=== PATIENT | female | born 1975 | race Caucasian/White ===

== ENCOUNTER 2016-10-15 15:52 | Observation (INO) | payer MEDICAID ==
[2016-10-15] VITALS (7 sets, daily range): BP systolic 108–133; BP diastolic 74–86; PULSE 68–95; RESP 18–20; TEMP 96.9–98.5; O2SAT 95–97
[~2016-10-15] VITALS: Ht 152.4 cm; Wt 73.0 kg
[~2016-10-15 15:52] MED LIST: BACT800T5 PO; CEPH500T PO
--- NOTE | 2016-10-15 16:18 | PD ---
HPI Chief Complaint: chest pain Time Seen by Provider: 16:11 Travel History International Travel<30 days: No Contact w/Intl Traveler<30days: No Traveled to known affect area: No History of Present Illness HPI 41-year-old female here for evaluation of substernal chest pain that started last night. The patient reports substernal chest ache/heaviness that started last night. Currently the pain is 5 out of 10 and is worse with exertion. The pain does not radiate. She went to an urgent care facility today where an EKG was performed and was reviewed and shows no ST segment abnormalities. Patient smokes cigarettes daily. She denies any known history of coronary artery disease. She has a history of asthma. No history of DVT or PE. She reports family history of heart disease on her father's side. No paresthesias or motor deficits. PFSH Past Medical History Asthma: Yes Blood Disorders: No Cancer: No Cardiovascular Problems: No COPD: No Diminished Hearing: No Endocrine: No Genitourinary: No Immune Disorder: No Musculoskeletal: Yes (BACK INJURY 06/2009) Neurologic: No Psychiatric: No Reproductive: No Respiratory: Yes (hx of asthma as a child) Immunizations Current: No Sleep Apnea: No Menopausal: No : 5 Para: 2 Miscarriage: 2 : 1 Ectopic : Yes (X 2) Past Surgical History Abdominal Surgery: Yes (CSECTION) AICD: No Arteriovenous Shunt: No Cardiac Surgery: No Section: Yes (X2) Ear Surgery: No Endocrine Surgery: No Eye Surgery: No Gynecologic Surgery: Yes Insulin Pump: No Joint Replacement: No Oral Surgery: No Pacemaker: No Thoracic Surgery: No Other Surgery: Yes Social History Alcohol Use: No Tobacco Use: Yes (1PPD) Substance Use: No Allergies-Medications (Allergen,Severity, Reaction): Coded Allergies: cyclobenzaprine (Unverified Adverse Reaction, Severe, Nausea/Vomiting, ) Reported Meds & Prescriptions Reported Meds & Active Scripts Active Reported Robaxin (Methocarbamol) 750 Mg Tab 750 Mg PO Q4H Hydrocodone-Acetaminophen 7.5-325 mg Tab 1 Tab PO Q6H PRN Lorazepam 0.5 Mg Tab 0.5 Mg PO Q8H PRN Review of Systems Except as stated in HPI: all other systems reviewed are Neg Physical Exam Narrative GENERAL: Well-developed, well-nourished, comfortable, no apparent distress. SKIN: Focused skin assessment warm/dry. HEAD: Atraumatic. Normocephalic. EYES: Pupils equal and round. No scleral icterus. No injection or drainage. ENT: Mucous membranes pink and moist. NECK: Trachea midline. No JVD. CARDIOVASCULAR: Regular rate and rhythm. Distal pulses brisk and equal bilaterally. RESPIRATORY: No accessory muscle use. Clear to auscultation. Breath sounds equal bilaterally. GASTROINTESTINAL: Abdomen soft, non-tender, nondistended. MUSCULOSKELETAL: No obvious deformities. No clubbing. No cyanosis. No edema. NEUROLOGICAL: Awake and alert. No obvious cranial nerve deficits. Motor grossly within normal limits. Normal speech. PSYCHIATRIC: Appropriate mood and affect; insight and judgment normal. Data Data Last Documented VS Vital Signs Date Time Temp Pulse Resp B/P Pulse Ox O2 Delivery O2 Flow Rate FiO2 10/15/16 17:40 81 108/74 97 10/15/16 16:39 98.5 18 Orders Electrocardiogram (10/15/16 16:16) Basic Metabolic Panel (Bmp) (10/15/16 16:16) Ckmb (Isoenzyme) Profile (10/15/16 16:16) Complete Blood Count With Diff (10/15/16 16:16) D-Dimer (10/15/16 16:16) Magnesium (Mg) (10/15/16 16:16) Prothrombin Time / Inr (Pt) (10/15/16 16:16) Act Partial Throm Time (Ptt) (10/15/16 16:16) Troponin I (10/15/16 16:16) Chest, Single Ap (10/15/16 16:16) Ecg Monitoring (10/15/16 16:16) Bilateral Bp Monitoring (10/15/16 16:16) Iv Access Insert/Monitor (10/15/16 16:16) Oximetry (10/15/16 16:16) Oxygen Administration (10/15/16 16:16) Aspirin Chew (Aspirin Chew) (10/15/16 16:30) Sodium Chloride 0.9% Flush (Ns Flush) (10/15/16 16:30) Nitroglycerin Sl (Nitrostat Sl) (10/15/16 16:30) Beta Hcg (Quant/Titer) (10/15/16 16:16) Labs Laboratory Tests Test 10/15/16 16:36 White Blood Count 10.0 TH/MM3 Red Blood Count 4.69 MIL/MM3 Hemoglobin 15.0 GM/DL Hematocrit 43.3 % Mean Corpuscular Volume 92.3 FL Mean Corpuscular Hemoglobin 31.9 PG Mean Corpuscular Hemoglobin 34.6 % Concent Red Cell Distribution Width 12.5 % Platelet Count 270 TH/MM3 Mean Platelet Volume 8.2 FL Neutrophils (%) (Auto) 72.0 % Lymphocytes (%) (Auto) 21.0 % Monocytes (%) (Auto) 3.5 % Eosinophils (%) (Auto) 1.1 % Basophils (%) (Auto) 2.4 % Neutrophils # (Auto) 7.2 TH/MM3 Lymphocytes # (Auto) 2.1 TH/MM3 Monocytes # (Auto) 0.4 TH/MM3 Eosinophils # (Auto) 0.1 TH/MM3 Basophils # (Auto) 0.2 TH/MM3 CBC Comment DIFF FINAL Differential Comment Prothrombin Time 10.8 SEC Prothromb Time International 1.0 RATIO Ratio Activated Partial 27.4 SEC Thromboplast Time D-Dimer Quantitative (PE/DVT) 0.20 MG/L FEU Sodium Level 138 MEQ/L Potassium Level 3.9 MEQ/L Chloride Level 109 MEQ/L Carbon Dioxide Level 21.3 MEQ/L Anion Gap 8 MEQ/L Blood Urea Nitrogen 9 MG/DL Creatinine 0.72 MG/DL Estimat Glomerular Filtration 89 ML/MIN Rate Random Glucose 83 MG/DL Calcium Level 8.8 MG/DL Magnesium Level 1.9 MG/DL Total Creatine Kinase 70 U/L Troponin I LESS THAN 0.02 NG/ML Human Chorionic Gonadotropin, LESS THAN 1 Quant MIU/ML MDM Medical Decision Making Medical Screen Exam Complete: Yes Emergency Medical Condition: Yes Interpretation(s) EKG: Sinus, rate 88, normal axis, normal intervals, no acute ischemic abnormality. Differential Diagnosis ACS, pneumothorax, pericarditis, PE, pneumonia, musculoskeletal pain Narrative Course Initial vital signs show heart rate 87, blood pressure 130/81, pulse ox 96% on room air, oral temp of 98.5F. CBC is unremarkable. BMP is unremarkable. Cardiac enzymes are negative. D-dimer is negative at 0.20. Beta hCG is negative. Chest x-ray: Small area of atelectasis at the right lung base. Patient was given a full aspirin and one sublingual nitroglycerin with improvement in chest tightness. She still has a slight pain in her chest. On reassessment she is sleeping comfortably. Patient is a smoker and has a strong family history of heart disease. Given these risk factors she will be admitted to the chest pain center for further cardiac evaluation. She is amenable to this plan. Case discussed with hospitalist Dr Lea who will admit the patient to his service. Diagnosis Primary Impression: Chest pain Qualified Code: R07.9 - Chest pain, unspecified type Admitting Information Admitting Physician Requests: Observation Shaun Crowley MD Oct 15, 2016 16:18 Shaun Crowley MD Oct 15, 2016 16:18
[2016-10-15] MEDS ORDERED: NITROGLYCERIN 0.4 MG SL 25 TABS/BTL SL ONE (16:30)
[2016-10-15] MEDS ORDERED: ASPIRIN 81 MG CHEW TAB PO ONE (16:30)
[2016-10-15] MEDS ORDERED: SODIUM CHLORIDE 0.9% FLUSH 10 ML FLUSH IVF PRN (16:30)
[2016-10-15] MEDS ORDERED: ROBA750T PO (16:46)
[2016-10-15] MEDS ORDERED: HYDR-3580 PO (16:46)
[2016-10-15] MEDS ORDERED: LORA-373 PO (16:46)
[2016-10-15 16:52] LABS: AUTOMATED NEUTROPHIL # 7.2 TH/MM3 (1.8-7.7); BASOPHIL # 0.2 TH/MM3 (0-0.2); BASOPHIL % 2.4 % (0.0-2.0); CHLORIDE 109 MEQ/L (98-107); EOSINOPHIL # 0.1 TH/MM3 (0-0.4); EOSINOPHIL % 1.1 % (0.0-4.0); HEMATOCRIT 43.3 % (35.0-46.0); HEMO FLAGS DIFF FINAL; LYMPHOCYTE # 2.1 TH/MM3 (1.0-4.8); MEAN CELL VOLUME 92.3 FL (80.0-100.0); MEAN CORPUSCULAR HEMOGLOBIN 31.9 PG (27.0-34.0); MEAN CORPUSCULAR HGB CONC 34.6 % (32.0-36.0); MONO % 3.5 % (0.0-8.0); PLATELET COUNT 270 TH/MM3 (150-450); POTASSIUM 3.9 MEQ/L (3.5-5.1); RED BLOOD COUNT 4.69 MIL/MM3 (4.00-5.30); RED CELL DISTRIBUTION WIDTH 12.5 % (11.6-17.2); SODIUM (NA) 138 MEQ/L (136-145)
[2016-10-15 16:55] LABS: ANION GAP 8 MEQ/L (5-15); BICARBONATE 21.3 MEQ/L (21.0-32.0); BLOOD UREA NITROGEN 9 MG/DL (7-18); MAGNESIUM 1.9 MG/DL (1.5-2.5)
[2016-10-15 16:58] LABS: APTT (PATIENT) 27.4 SEC (24.3-30.1); GLOMERULAR FILTRATION RATE 89 ML/MIN (>89); PROTHROMBIN TIME - PATIENT 10.8 SEC (9.8-11.6)
[2016-10-15 17:03] LABS: BETA HCG QUANT LESS THAN 1 MIU/ML (0-5)
[2016-10-15 17:05] LABS: CREATINE KINASE 70 U/L (26-192)
--- NOTE | 2016-10-15 17:11 | RADRPT ---
EXAM DATE/TIME: 10/15/2016 16:47 [facility] COMPARISON: No previous studies available for comparison. INDICATIONS : Chest pain. MEDICAL HISTORY : None. SURGICAL HISTORY : None. ENCOUNTER: Initial ACUITY: 1 day PAIN SCORE: 7/10 LOCATION: Bilateral chest FINDINGS: There is some mild platelike atelectasis at the right lung base. The lungs are otherwise clear. The h eart is normal in size. The bony structures are intact. CONCLUSION: Small area of atelectasis at the right lung base. Mulugeta Schwarz MD on October 15, 2016 at 17:09 Board Certified Radiologist. This report was verified electronically.
[2016-10-15] MEDS ORDERED: NITROGLYCERIN 0.4 MG SL 25 TABS/BTL SL PRN (18:00)
[2016-10-15] MEDS ORDERED: ACETAMINOPHEN/HYDROcodone 325 MG/7.5 MG TAB PO PRN (18:00)
[2016-10-15] MEDS ORDERED: TEMAZEPAM 15 MG CAP PO PRN (18:00)
[2016-10-15] MEDS ORDERED: ONDANSETRON HCL 4 MG/2 ML VIAL IV PRN (18:00)
[2016-10-15] MEDS ORDERED: MORPHINE SULFATE 4 MG/ML INJ IV PRN (18:00)
[2016-10-15] MEDS ORDERED: SODIUM CHLORIDE 0.9% FLUSH 10 ML FLUSH IV FLUSH PRN (18:00)
[2016-10-15] MEDS ORDERED: ACETAMINOPHEN 500 MG CPLT PO PRN (18:00)
[2016-10-15] MEDS: SODIUM CHLORIDE 0.9% FLUSH 10 ML FLUSH IV FLUSH SCH (21:18)
[2016-10-15 22:01] LABS: CREATINE KINASE 51 U/L (26-192)
[2016-10-15 23:43] LABS: CREATINE KINASE 49 U/L (26-192)
[2016-10-16] VITALS: BP 102/65; PULSE 72; RESP 20; TEMP 96.7; O2SAT 98
--- NOTE | 2016-10-16 00:17 | EKG ---
Date Performed: 10/15/2016 Time Performed: 20:44:12 PTAGE: 41 years EKG: Sinus rhythm NORMAL ECG PREVIOUS TRACING : 10/15/2016 18.12 Compared to prior tracing no significant change DOCTOR: Elder Schrader Interpretating Date/Time 10/16/2016 00:16:31
--- NOTE | 2016-10-16 00:30 | EKG ---
Date Performed: 10/15/2016 Time Performed: 18:12:12 PTAGE: 41 years EKG: Sinus rhythm NORMAL ECG PREVIOUS TRACING : 10/15/2016 16.21 Compared to prior tracing no significant change DOCTOR: Elder Schrader Interpretating Date/Time 10/16/2016 00:28:43
--- NOTE | 2016-10-16 00:33 | EKG ---
Date Performed: 10/15/2016 Time Performed: 16:21:07 PTAGE: 41 years EKG: Sinus rhythm NORMAL ECG INTERPRETATION BASED ON A DEFAULT AGE OF 40 YEARS Compared to the PREVIOUS TRACING , no significant change DOCTOR: Elder Schrader Interpretating Date/Time 10/16/2016 00:32:45
[2016-10-16 01:55] VITALS: O2SAT 96
[2016-10-16 04:00] VITALS: BP 101/69; PULSE 72; RESP 20; TEMP 96; O2SAT 97
[2016-10-16 08:13] VITALS: O2SAT 97
[2016-10-16 08:52] VITALS: BP 124/69; PULSE 73; RESP 14; TEMP 97.9; O2SAT 96
--- NOTE | 2016-10-16 09:22 | HHI.HP ---
[facility] Farooq [facility] M.D. Admission Diagnosis Chest Pain Diagnoses: (1) Chest pain Diagnosis: Principal Chief Complaint: Chest discomfort Travel History International Travel<30 Days: No Contact w/Intl Traveler <30 Da: No Traveled to Known Affected Are: No History of Present Illness Written by Elijah Owen, acting as scribe for Dr. Lea on 10/16/16 at 09: 14. Is a 41-year-old female with chronic neck and back pain who presented to the hospital because of chest discomfort. Patient states that the pain started 2 days ago while she was sitting and watching TV. She describes it as a pressure 8/10 on a pain scale located over the mid sternum and has remained constant for the last 2 days without any changing. She indicates that she did have some nausea, shortness of breath, lightheaded dizziness, cough since the chest discomfort started. Since the pain was persistent she came to the emergency department for evaluation. Patient was given nitroglycerin and the pain did improve to a 2/10 on a pain scale. The pain is persistent at this time and is reproducible on palpation. Patient states that she has been working in the yard recently, denies any heavy lifting, straining. Patient had workup done in the emergency department and is recommended that the patient be observed in the chest pain center. Review of Systems Cardiovascular: COMPLAINS OF: Chest pain Except as stated in HPI: all other systems reviewed are Neg Past Family Social History Past Medical History Chronic neck and back pain Chronic smoker Past Surgical History 2 Ectopic 2 Reported Medications Reported Meds & Active Scripts Active Reported Robaxin (Methocarbamol) 750 Mg Tab 750 Mg PO Q4H Hydrocodone-Acetaminophen 7.5-325 mg Tab 1 Tab PO Q6H PRN Lorazepam 0.5 Mg Tab 0.5 Mg PO Q8H PRN Allergies: Coded Allergies: cyclobenzaprine (Unverified Adverse Reaction, Severe, Nausea/Vomiting, ) Family History Reviewed and patient states that she is adopted, however she has learned that there is heart disease and cancer, but does not know specifics Social History Patient smokes 1 pack a cigarettes a day since she was 14 years old, Patient denies any alcohol or illicit drugs Physical Exam Vital Signs Vital Signs Date Time Temp Pulse Resp B/P Pulse Ox O2 Delivery O2 Flow Rate FiO2 10/16/16 08:52 97.9 73 14 124/69 96 10/16/16 08:13 97 Nasal Cannula 1.00 10/16/16 04:00 96.0 72 20 101/69 97 10/16/16 01:55 96 Nasal Cannula 1.50 10/16/16 00:00 96.7 72 20 102/65 98 10/15/16 23:00 70 10/15/16 20:00 96.9 68 20 117/86 97 10/15/16 20:00 73 10/15/16 17:40 81 108/74 97 10/15/16 17:14 95 116/76 95 10/15/16 16:53 130/81 133/76 10/15/16 16:46 96 10/15/16 16:46 85 96 10/15/16 16:39 98.5 87 18 130/81 96 Physical Exam GENERAL: Well-developed, well-nourished, in no acute distress. alert and orientated HEENT: Head is normocephalic without any lesions or masses noted. Facial features are symmetric. Eyes: Pupils equal round reactive to light. Extraocular muscles are intact. Conjunctivae were clear. Oropharyngeal: Pharynx without any erythema edema. Tongue is midline without deviation. Buccal mucosa is moist without any masses or lesions NECK: Supple without any masses. Trachea midline no deviation. No JVD, no bruits are appreciated CARDIAC: Regular rhythm, regular rate. S1/S2 are heard. No murmurs gallops or rubs. Reproducible palpable tenderness noted over the mid sternum LUNGS: Clear to auscultation bilaterally. No wheeze, rhonchi or rales. No use of accessory muscles on inspiration or expiration. ABDOMEN: Soft, nontender. Nondistended. Bowel sounds heard in all 4 quadrants. No organomegaly or masses. Negative rebound, negative guarding EXTREMITIES: No edema, pulses are equal bilaterally. No cyanosis or clubbing NEUROLOGY: Mood and affect appear appropriate. Cranial nerves II through XII grossly intact. Muscle strength 5/5 in upper and lower extremities bilaterally. Deep tendon reflexes are 2+ in upper and lower extremities bilaterally. Laboratory Laboratory Tests Test 10/15/16 10/15/16 10/15/16 16:36 20:50 22:35 White Blood Count 10.0 Red Blood Count 4.69 Hemoglobin 15.0 Hematocrit 43.3 Mean Corpuscular Volume 92.3 Mean Corpuscular Hemoglobin 31.9 Mean Corpuscular Hemoglobin 34.6 Concent Red Cell Distribution Width 12.5 Platelet Count 270 Mean Platelet Volume 8.2 Neutrophils (%) (Auto) 72.0 Lymphocytes (%) (Auto) 21.0 Monocytes (%) (Auto) 3.5 Eosinophils (%) (Auto) 1.1 Basophils (%) (Auto) 2.4 Neutrophils # (Auto) 7.2 Lymphocytes # (Auto) 2.1 Monocytes # (Auto) 0.4 Eosinophils # (Auto) 0.1 Basophils # (Auto) 0.2 CBC Comment DIFF FINAL Differential Comment Prothrombin Time 10.8 Prothromb Time International 1.0 Ratio Activated Partial 27.4 Thromboplast Time D-Dimer Quantitative (PE/DVT) 0.20 Sodium Level 138 Potassium Level 3.9 Chloride Level 109 Carbon Dioxide Level 21.3 Anion Gap 8 Blood Urea Nitrogen 9 Creatinine 0.72 Estimat Glomerular Filtration 89 Rate Random Glucose 83 Calcium Level 8.8 Magnesium Level 1.9 Total Creatine Kinase 70 51 49 Troponin I LESS THAN 0.02 LESS THAN 0.02 LESS THAN 0.02 Human Chorionic Gonadotropin, LESS THAN 1 Quant Result Diagram: 10/15/16 1636 10/15/16 1636 Imaging Last Impressions Chest X-Ray 10/15/16 1616 Signed Impressions: Service Date/Time: Saturday, October 15, 2016 16:47 - CONCLUSION: Small area of atelectasis at the right lung base. Mulugeta Schwarz MD Assessment and Plan Assessment and Plan Chest pain, atypical Patient with increased risk factor to include tobacco use, family history of heart disease Patient has been ruled out for any acute coronary event with serial cardiac enzymes which are negative, serial EKGs which show sinus rhythm without any changes We'll pursue nuclear stress test at this time, patient indicates that she cannot do an exercise stress test. If negative she will be discharged home. Continue on aspirin, nitroglycerin as needed, morphine as needed. Chronic neck and back pain Continue as needed pain control DVT prevention Low risk, early ambulation Discharge disposition Discharge home in stable condition Activity: Ad amrik. Diet: Regular diet Medications per medication reconciliation Follow-up primary medical doctor one week This note was transcribed by scribe [Elijah Owen]. I, Dr. Clemente Lea personally performed the history, physical exam, and medical decision making; and confirmed the accuracy of the information in the transcribed note. Authenticated by Dr. Clemente Lea on 10/16/16 at 0915. Problem Qualifiers (1) Chest pain: Qualified Code: R07.9 - Chest pain, unspecified type Elijah Owen Oct 16, 2016 09:22 Clemente Lea MD Oct 16, 2016 10:46
[2016-10-16] MEDS: SODIUM CHLORIDE 0.9% FLUSH 10 ML FLUSH IV FLUSH SCH (10:03)
[2016-10-16] MEDS ORDERED: REGADENOSON INJ 0.4 MG/5 ML SYR IV ONE (11:37)
--- NOTE | 2016-10-16 12:49 | RADRPT ---
EXAM DATE/TIME: 10/16/2016 11:31 [facility] COMPARISON: No previous studies available for comparison. INDICATIONS : Substernal chest pain. Angina. Abnormal EKG. DOSE: 25.7 mCi Tc99m Myoview at stress. 8.1 mCi Tc99m Myoview at rest. 0.4 mg Lexisca STRESS SYMPTOMS: Head pressure and dizzy. EJECTION FRACTION: 66% MEDICAL HISTORY : Smoker and asthma. SURGICAL HISTORY : section. ENCOUNTER: Initial ACUITY: 1 day PAIN SCALE: 5/10 LOCATION: Substernal chest TECHNIQUE: The patient underwent pharmacologic stress with infusion of prescribed dose. Continuous ECG tracing was monitored during stress. Gated SPECT imaging was performed after stress and conventional SPECT i maging was performed at rest. The examination was performed on a SPECT/CT scanner, both attenuation and non-corrected datasets were reviewed. FINDINGS: DISTRIBUTION: The maximum perfused segment at stress is in the inferior wall. PERFUSION STUDY: The pattern of perfusion at stress is within normal limits. GATED STUDY: There is intact wall motion and thickening without hypokinetic or dyskinetic segments. CONCLUSION: 1. Normal wall motion and calculated ejection fraction. 2. No fixed or reversible wall defects. RISK CATEGORY: Low (<1% Annual Mortality Rate) Be Aragon MD on October 16, 2016 at 12:43 Board Certified Radiologist. This report was verified electronically.
--- NOTE | 2016-10-16 13:40 | HHI.DCPOC ---
Discharge Care Plan Diagnosis: (1) Chest pain Goals to Promote Your Health * To prevent worsening of your condition and complications * To maintain your health at the optimal level Directions to Meet Your Goals Take your medications as prescribed Follow your dietary instruction Follow activity as directed Keep your appointments as scheduled Take your immunizations and boosters as scheduled If your symptoms worsen call your PCP, if no PCP go to Urgent Care Center or Emergency Room Smoking is Dangerous to Your Health. Avoid second hand smoke Call the 24-hour hour crisis hotline for domestic abuse at Elijah Owen Oct 16, 2016 13:40
--- NOTE | 2016-10-16 16:21 | TR ---
Date Performed: 10/16/2016 Time Performed: 12:00:18 DOCTOR: Adolfo Nunez DRUG LIST: CLINICAL HISTORY: REASON FOR TEST: REASON FOR ENDING: OBSERVATION: CONCLUSION: Lexiscan stress test was performed under standard four minute protocol. Radionuclid e was injected one minute prior to ending the test. No electrocardiographic abormalities were present to suggest ischemia. Nuclear imaging and interpretation are pending. COMMENTS:
== END 2016-10-16 15:34 | disposition home or self-care (01) ==
LOC: PHED 15:52 → PHEDA 17:48 → PH3A 18:55
PROVIDERS: ADMIT Family Medicine; ATTEND Family Medicine
DX: R07.89 Other chest pain (principal); R06.02 Shortness of breath; G89.29 Other chronic pain; M54.2 Cervicalgia; R94.31 Abnormal electrocardiogram [ECG] [EKG]; F17.210 Nicotine dependence, cigarettes, uncomplicated; J98.11 Atelectasis; Z82.49 Family history of ischemic heart disease and other diseases of the circulatory system
CPT/HCPCS: 71010; 78452; 80048; 82550; 83735; 84484; 84702; 85025; 85379; 85610; 85730; 87641; 93005; 93017; 99285; A9502; G0378; J2785

== ENCOUNTER 2017-08-09 08:57 | Emergency (ER) | payer MEDICAID ==
[~2017-08-09] VITALS: Ht 152.4 cm; Wt 75.8 kg
[~2017-08-09 08:57] MED LIST changes: -BACT800T5 PO; -CEPH500T PO; +HYDR-3580 PO; +LORA0.5T PO; +ROBA750T PO
[2017-08-09 09:01] VITALS: BP 120/73; PULSE 94; RESP 16; TEMP 98.3; O2SAT 97
[2017-08-09] MEDS ORDERED: METHOCARBAMOL 500 MG TAB PO ONE (09:45)
[2017-08-09] MEDS ORDERED: ACETAMINOPHEN/HYDROcodone 325 MG/5 MG TAB PO ONE (09:45)
--- NOTE | 2017-08-09 09:53 | PD ---
HPI Chief Complaint: Injury Time Seen by Provider: 09:20 Travel History International Travel<30 days: No Contact w/Intl Traveler<30days: No Traveled to known affect area: No History of Present Illness HPI 42-year-old female presents to the emergency department with complaint of pain to her upper right calf and back of her knee since after running yesterday and she "felt a tear." Reports tingling sensation in her foot, otherwise denies loss of sensation. Reports decreased range of motion secondary to pain. Is able to flex and extend the leg completely. Has been ambulatory on the affected extremity. Denies fever, vomiting. Denies chest pain, shortness of breath. Denies history of DVT, anticoagulant therapy, contraception use, recent travel or surgery. Worse with ambulation. Better with rest. Rates pain 09/09. Has prescription of Lortab for chronic back pain and has been taking that for pain management with minimal relief; last taken last night. Has not tried any other treatments. Primary CARE providers Dr. Cannon at [facility]. Allergies to Flexeril. History of chronic back pain. Denies other significant past medical history. Has no other medical complaints. No other modifying factors or associated signs and symptoms. PFSH Past Medical History Asthma: Yes Blood Disorders: No Anxiety: Yes Depression: No Cancer: No Cardiovascular Problems: No Chemotherapy: No COPD: No Diminished Hearing: No Endocrine: No Genitourinary: No Immune Disorder: No Musculoskeletal: Yes (BACK INJURY 06/2009) Neurologic: Yes Psychiatric: Yes Reproductive: No Respiratory: Yes (hx of asthma as a child) Immunizations Current: No Radiation Therapy: No Sleep Apnea: No ?: Not Menopausal: No : 5 Para: 2 Miscarriage: 2 : 1 Ectopic : Yes (X 2) Past Surgical History Abdominal Surgery: Yes (CSECTION) AICD: No Arteriovenous Shunt: No Cardiac Surgery: No Section: Yes (X2) Ear Surgery: No Endocrine Surgery: No Eye Surgery: No Gynecologic Surgery: Yes Insulin Pump: No Joint Replacement: No Oral Surgery: No Pacemaker: No Thoracic Surgery: No Other Surgery: Yes Social History Alcohol Use: No Tobacco Use: Yes (1PPD) Substance Use: No Allergies-Medications (Allergen,Severity, Reaction): Coded Allergies: cyclobenzaprine (Unverified Adverse Reaction, Severe, Nausea/Vomiting, 08/09) Reported Meds & Prescriptions Reported Meds & Active Scripts Active Ibuprofen 800 Mg Tab 800 Mg PO Q6HR PRN Reported Lorazepam 0.5 Mg Tab 1 Mg PO Q8H PRN Review of Systems Except as stated in HPI: all other systems reviewed are Neg Physical Exam Narrative GENERAL: Well-nourished, well-developed femur patient, in no acute distress; afebrile, nontoxic-appearing SKIN: Warm and dry. HEAD: Atraumatic. Normocephalic. EYES: Pupils equal and round. No scleral icterus. No injection or drainage. ENT: Mucosa pink and moist. Airway patent. NECK: Trachea midline. CARDIOVASCULAR: Regular rate. RESPIRATORY: No accessory muscle use. GASTROINTESTINAL: Flat. MUSCULOSKELETAL: Right knee nonedematous, nonerythematous, and without ecchymosis; flexion to approx 90; with full extension; point tenderness to the posterior aspect and tot he upper calf area; right calf is without erythema, edema, ecchymosis; no obvious deformity. Right Lower extremity is supple and non-tense with 2+ pedal pulse and sensory intact and without erythema or edema. With active plantar flexion and extension. NEUROLOGICAL: Awake and alert. Oriented 3. No obvious cranial nerve deficits. Motor grossly within normal limits. Normal speech. PSYCHIATRIC: Appropriate mood and affect; insight and judgment normal. Data Data Last Documented VS Vital Signs Date Time Temp Pulse Resp B/P (MAP) Pulse Ox O2 Delivery O2 Flow Rate FiO2 08/09/17 09:01 98.3 94 16 120/73 (89) 97 Orders Orders Knee, Complete (4vws) (08/09/17 09:40) Crutches (08/09/17 09:40) Acetamin-Hydrocod 325-5 Mg ([place] 5-325 (08/09/17 09:45) Methocarbamol (Robaxin) (08/09/17 09:45) Canvas Knee Splint (Cks) (08/09/17 ) Ed Discharge Order (08/09/17 11:01) MDM Medical Decision Making Medical Screen Exam Complete: Yes Emergency Medical Condition: Yes Medical Record Reviewed: Yes Differential Diagnosis Muscle strain of leg, ligament tear, knee strain Narrative Course 42-year-old female with injury to the posterior aspect of her knee and right upper calf since yesterday after running and "felt a tear." I will x-ray the need to rule out any acute injury. Otherwise I do suspect strain or sprain of the leg. Patient takes Lortab for chronic back pain. She has not taken on this morning. Lortab, right knee x-ray ordered. 1101: Right knee x-ray concluded: Knee X-Ray 08/09/17 0940 Signed Impressions: CONCLUSION: No evidence of recent bony injury. Discussed x-ray findings with the patient. Cannabis knee splint and crutches provided for support. Ibuprofen prescribed for home. Instructed patient to follow-up if symptoms persist greater than 7-10 days. Instructed patient to follow up with primary care provider. Patient verbalizes understanding and agreement with treatment plan. Patient is medically cleared and stable for discharge. Discussed reasons to return to the emergency department. Patient agrees with treatment plan. The patients vital signs are stable and the patient is stable for outpatient follow-up and treatment. Patient discharged home, stable and in no acute distress. Diagnosis Primary Impression: Right leg injury Qualified Codes: S89.91XA - Unspecified injury of right lower leg, initial encounter Referrals: Orthopaedic Surgeon Primary Care Physician Patient Instructions: General Instructions, Knee Sprain (ED), Leg Sprain (ED), Muscle Strain (ED) Additional Instructions: Tylenol or ibuprofen as needed and as directed to reduce pain and inflammation Rest, ice, compress, and elevate extremity to decrease pain and inflammation Knee brace for support Crutches for support Avoid aggravating activity; increase activity as tolerated Follow-up with primary care provider Follow-up with orthopedics Return to the emergency department immediately with worsening symptoms Med/Other Pt SpecificInfo: Prescription(s) given Scripts Ibuprofen (Ibuprofen) 800 Mg Tab 800 MG PO Q6HR Y for PAIN, #20 TAB 0 Refills Prov: Anni Estrada 08/09/17 Disposition: 01 DISCHARGE HOME Condition: Stable Anni Estrada Aug 09, 2017 09:53
--- NOTE | 2017-08-09 10:25 | RADRPT ---
EXAM DATE: 08/09/2017 10:09 AM EDT AGE/SEX: 42 years / Female INDICATIONS: Twisted right knee. Unable to bear weight with pain. CLINICAL DATA: This is the patient's initial encounter. Patient reports that signs and symptoms have been present for 1 day and indicates a pain score of 7/10. MEDICAL/SURGICAL HISTORY: None. None. COMPARISON: No prior exams available for comparison. FINDINGS: Bony structures are intact and in normal alignment. Joints are intact without dislocation or signifi cant arthropathy. Osseous density is normal. Soft tissues are unremarkable. No radiopaque foreign bodies seen. CONCLUSION: No evidence of recent bony injury. Electronically signed by: Hector Krueger MD 08/09/2017 10:23 AM EDT
[2017-08-09] MEDS ORDERED: IBUP1TAB7 PO (11:04)
== END 2017-08-09 11:26 | disposition home or self-care (01) ==
LOC: PHED 08:57
DX: S89.91XA Unspecified injury of right lower leg, initial encounter (principal); X58.XXXA Exposure to other specified factors, initial encounter; G89.29 Other chronic pain; M54.9 Dorsalgia, unspecified; J45.909 Unspecified asthma, uncomplicated; F41.9 Anxiety disorder, unspecified; F17.200 Nicotine dependence, unspecified, uncomplicated
CPT/HCPCS: 73564; 99283; E0113; L1830